=== PATIENT | male | born 1955 | race Caucasian/White ===

== ENCOUNTER 2020-01-10 09:48 | Inpatient (IN) | payer OTHER ==
[~2020-01-10] VITALS: Ht 193 cm; Wt 114.4 kg
--- NOTE | 2020-01-10 10:01 | NUR ---
pt to room from triage in a wheelchair. she is changed into a hospital gown, and connected to our vehicle monitor technician. warm blanket provided for comfort.
[2020-01-10 10:44] LABS: BASOPHILS # (AUTO) 0.02 x10^3/uL (0-0.1); BASOPHILS % (AUTO) 0 % (0-1); EOSINOPHILS # (AUTO) 0.05 x10^3/uL (0-0.4); EOSINOPHILS % (AUTO) 1 % (1-7); LYMPHOCYTES # (AUTO) 0.85 x10^3/uL (1-3.4); LYMPHOCYTES % (AUTO) 16 % (22-44); MD NO; MEAN CORPUSCULAR HEMOGLOBIN 32.5 pg (27.5-34.5); MEAN CORPUSCULAR HGB CONC 32.1 g/dL (33.2-36.2); MEAN CORPUSCULAR VOLUME 101.2 fL (81-97); MEAN PLATELET VOLUME 7.7 fL (7.4-10.4); MONOCYTES # (AUTO) 0.35 x10^3/uL (0.2-0.8); MONOCYTES % (AUTO) 7 % (2-9); NEUTROPHILS # (AUTO) 4.03 x10^3/uL (1.8-6.8); NEUTROPHILS % (AUTO) 76 % (42-75); PLATELET COUNT 169 x10^3/uL (130-400); RED BLOOD COUNT 4.63 x10^6/uL (4.38-5.82); RED CELL DISTRIBUTION WIDTH 15.2 % (9.4-14.8)
[2020-01-10 10:56] LABS: ALBUMIN 3.5 g/dL (3.4-5.0); ANION GAP 8 mmol/L (5-15); CALCIUM 8.9 mg/dL (8.5-10.1); CHLORIDE 112 mmol/L (98-107)
[2020-01-10 11:02] LABS: ALANINE AMINOTRANSFERASE 43 U/L (12-78); ALKALINE PHOSPHATASE 96 U/L (45-117); BILIRUBIN,TOTAL 1.9 mg/dL (0.2-1.0); CREATININE 1.38 mg/dL (0.7-1.3); TOTAL PROTEIN 6.7 g/dL (6.4-8.2); TROPONIN I 0.064 ng/mL (0.000-0.045)
[2020-01-10] MEDS ORDERED: FUROSEMIDE 40 MG/4 ML ONE (12:10)
--- NOTE | 2020-01-10 12:29 | NUR ---
education provided in regard to the plan of care, as well as the basics of congestive heart failure. we discussed diuresis, echocardiograms, and likely medication regimines. he has a urinal at the bedside and is feeling improvement fom oxygenation. i will continue to monitor and treat as ordered, as well as prn while awaiting further plan of care. expecting admission
[2020-01-10] MEDS ORDERED: FUROSEMIDE 40 MG/4 ML IV ONE (12:30)
[2020-01-10] MEDS ORDERED: SODIUM CHLORIDE FLUSH 10ML SYR IVF PRN (13:00)
--- NOTE | 2020-01-10 13:07 | NUR ---
Handoff report received from HUBERT Sifuentes
[2020-01-10 13:17] LABS: MICROSCOPIC NOT IND
--- NOTE | 2020-01-10 13:17 | NUR ---
kianna (rn) is assuming care of this pt at this time. sbar report was exchanged at the bedside.
--- NOTE | 2020-01-10 13:34 | NUR ---
Pt resting, no needs at this time. VS updated.
--- NOTE | 2020-01-10 14:23 | NUR ---
Pt provided with urinal, good UO post Lasix.
[2020-01-10] MEDS ORDERED: HYDROcodone/APAP 5/325 TABLET PO PRN (14:30)
[2020-01-10] MEDS ORDERED: ACETAMINOPHEN 325 MG TABLET PO PRN (14:30)
[2020-01-10] MEDS ORDERED: MELATONIN 5 MG TABLET PO PRN (14:30)
[2020-01-10] MEDS ORDERED: NITROGLYCERIN 0.4 MG BOTTLE (25 TABS) SL PRN (14:30)
[2020-01-10] MEDS ORDERED: LABETALOL 5MG/ML, 20ML IVPush PRN (14:30)
[2020-01-10] MEDS ORDERED: morphine SULFATE 10 MG/ML, 1ML IVPush PRN (14:30)
[2020-01-10] MEDS ORDERED: ONDANSETRON 2MG/ML, 2ML IVPush PRN (14:30)
[2020-01-10] MEDS ORDERED: ONDANSETRON ODT 4 MG PO PRN (14:30)
[2020-01-10] MEDS ORDERED: BISACODYL 10 MG SUPP PR PRN (14:30)
[2020-01-10] MEDS: CEFTRIAXONE PMX 2GM/50ML 50 ML IV SCH (14:50)
[2020-01-10] MEDS ORDERED: CEFTRIAXONE PMX 2GM/50ML 50 ML ONE (14:51)
[2020-01-10] MEDS ORDERED: HEPARIN 5,000 UNITS/ML, 1ML ONE (14:51)
[2020-01-10] MEDS: HEPARIN 5,000 UNITS/ML, 1ML SQ SCH ×2 (14:54→23:00)
--- NOTE | 2020-01-10 15:00 | NUR ---
Blood CX obtained, ABX administered. Pt resting, comfortable, no needs at this time.
[2020-01-10 15:14] LABS: TROPONIN I 0.058 ng/mL (0.000-0.045)
--- NOTE | 2020-01-10 16:35 | NUR ---
Rocephin 2 GM not scanned, administered approx 1450 in ED 26. [employer] plant superintendent aware.
[2020-01-10 17:01] VITALS: BP 129/94
[2020-01-10] MEDS: FUROSEMIDE 40 MG/4 ML IV SCH ×2 (17:01→23:00)
[2020-01-10] MEDS: CARVEDILOL 3.125 MG TABLET PO SCH (17:01)
[2020-01-10] MEDS: POTASSIUM CHLORIDE 20 MEQ TAB.ER.PRT PO SCH (17:01)
[2020-01-10 19:28] VITALS: BP 97/60
[2020-01-10] MEDS: FAMOTIDINE 20 MG TABLET PO SCH (23:00)
[2020-01-11 01:54] VITALS: BP 132/83
[2020-01-11 03:18] LABS: ALANINE AMINOTRANSFERASE 39 U/L (12-78); ANION GAP 9 mmol/L (5-15); CALCIUM 8.1 mg/dL (8.5-10.1); CHLORIDE 107 mmol/L (98-107); CREATININE 1.31 mg/dL (0.7-1.3)
[2020-01-11 03:22] LABS: ALKALINE PHOSPHATASE 83 U/L (45-117); BILIRUBIN,TOTAL 1.7 mg/dL (0.2-1.0); CHOL/HDL RATIO 4.7; CHOLESTEROL, TOTAL 136 mg/dL (140-239); HDL CHOL % 21 % (26-37); HDL CHOLESTEROL (DIRECT) 29 mg/dL (40-60); LDL CHOLESTEROL,CALCULATED 95 mg/dL (54-169); LDL/HDL RATIO 3.3 (0.5-3.0); TOTAL PROTEIN 6.3 g/dL (6.4-8.2); TRIGLYCERIDES 61 mg/dL (50-200); VLDL CHOLESTEROL 12 mg/dL (0-25)
[2020-01-11 03:24] LABS: BASOPHILS # (AUTO) 0.02 x10^3/uL (0-0.1); BASOPHILS % (AUTO) 1 % (0-1); EOSINOPHILS # (AUTO) 0.12 x10^3/uL (0-0.4); EOSINOPHILS % (AUTO) 3 % (1-7); LYMPHOCYTES # (AUTO) 1.09 x10^3/uL (1-3.4); LYMPHOCYTES % (AUTO) 26 % (22-44); MD NO; MEAN CORPUSCULAR HEMOGLOBIN 33.3 pg (27.5-34.5); MEAN CORPUSCULAR HGB CONC 32.9 g/dL (33.2-36.2); MEAN CORPUSCULAR VOLUME 101.2 fL (81-97); MEAN PLATELET VOLUME 8.1 fL (7.4-10.4); MONOCYTES # (AUTO) 0.43 x10^3/uL (0.2-0.8); MONOCYTES % (AUTO) 10 % (2-9); NEUTROPHILS # (AUTO) 2.51 x10^3/uL (1.8-6.8); NEUTROPHILS % (AUTO) 60 % (42-75); PLATELET COUNT 156 x10^3/uL (130-400); RED BLOOD COUNT 4.49 x10^6/uL (4.38-5.82)
[2020-01-11 03:37] LABS: TROPONIN I 0.037 ng/mL (0.000-0.045)
[2020-01-11] MEDS: ASPIRIN 325 MG TABLET EC PO SCH (06:04)
[2020-01-11] MEDS: CARVEDILOL 3.125 MG TABLET PO SCH ×2 (06:04→17:51)
[2020-01-11] MEDS: FUROSEMIDE 40 MG/4 ML IV SCH (06:04)
[2020-01-11] MEDS: HEPARIN 5,000 UNITS/ML, 1ML SQ SCH (06:05)
[2020-01-11 06:06] VITALS: BP 123/89
[2020-01-11 07:44] VITALS: BP 101/68
[2020-01-11] MEDS: SENNA/DOCUSATE TABLET PO SCH (10:08)
[2020-01-11] MEDS: POTASSIUM CHLORIDE 20 MEQ TAB.ER.PRT PO SCH ×2 (10:08→17:51)
[2020-01-11] MEDS: FAMOTIDINE 20 MG TABLET PO SCH (10:08)
[2020-01-11] MEDS: LINEZOLID 600 MG TABLET PO SCH ×2 (11:17→20:10)
[2020-01-11 14:13] VITALS: BP 111/77
[2020-01-11] MEDS: CEFTRIAXONE PMX 2GM/50ML 50 ML IV SCH (14:37)
[2020-01-11] MEDS: ENOXAPARIN 150 MG/ML SQ SCH (14:37)
[2020-01-11 17:52] VITALS: BP 117/78
[2020-01-11 20:24] VITALS: BP 103/66
[2020-01-11] MEDS ORDERED: FUROSEMIDE 40 MG/4 ML IV SCH (21:00)
[2020-01-12] MEDS: ENOXAPARIN 150 MG/ML SQ SCH (00:52)
[2020-01-12 02:03] VITALS: BP 105/75
[2020-01-12 05:05] LABS: BASOPHILS # (AUTO) 0.03 x10^3/uL (0-0.1); BASOPHILS % (AUTO) 1 % (0-1); EOSINOPHILS # (AUTO) 0.16 x10^3/uL (0-0.4); EOSINOPHILS % (AUTO) 4 % (1-7); LYMPHOCYTES # (AUTO) 1.41 x10^3/uL (1-3.4); LYMPHOCYTES % (AUTO) 34 % (22-44); MD NO; MEAN CORPUSCULAR HEMOGLOBIN 32.9 pg (27.5-34.5); MEAN CORPUSCULAR HGB CONC 32.6 g/dL (33.2-36.2); MEAN CORPUSCULAR VOLUME 100.9 fL (81-97); MEAN PLATELET VOLUME 8.2 fL (7.4-10.4); MONOCYTES # (AUTO) 0.41 x10^3/uL (0.2-0.8); MONOCYTES % (AUTO) 10 % (2-9); NEUTROPHILS # (AUTO) 2.15 x10^3/uL (1.8-6.8); NEUTROPHILS % (AUTO) 52 % (42-75); PLATELET COUNT 183 x10^3/uL (130-400); RED BLOOD COUNT 4.74 x10^6/uL (4.38-5.82); RED CELL DISTRIBUTION WIDTH 15.3 % (9.4-14.8)
[2020-01-12 05:12] LABS: ALBUMIN 3.2 g/dL (3.4-5.0); ANION GAP 8 mmol/L (5-15); CALCIUM 8.4 mg/dL (8.5-10.1); CHLORIDE 104 mmol/L (98-107)
[2020-01-12 05:40] LABS: ALANINE AMINOTRANSFERASE 42 U/L (12-78); ALKALINE PHOSPHATASE 89 U/L (45-117); BILIRUBIN,TOTAL 1.5 mg/dL (0.2-1.0); CREATININE 1.58 mg/dL (0.7-1.3)
[2020-01-12 05:58] VITALS: BP 111/74
[2020-01-12] MEDS: ASPIRIN 325 MG TABLET EC PO SCH (06:00)
[2020-01-12] MEDS: CARVEDILOL 3.125 MG TABLET PO SCH (06:01)
[2020-01-12 08:47] VITALS: BP 126/84
[2020-01-12] MEDS ORDERED: CARVEDILOL 6.25 MG TABLET PO ONE (09:30)
[2020-01-12] MEDS: POTASSIUM CHLORIDE 20 MEQ TAB.ER.PRT PO SCH ×2 (09:59→17:18)
[2020-01-12] MEDS: LINEZOLID 600 MG TABLET PO SCH ×2 (09:59→21:38)
[2020-01-12] MEDS: SENNA/DOCUSATE TABLET PO SCH (10:03)
[2020-01-12] MEDS: ENOXAPARIN 120MG/0.8ML SQ SCH (13:00)
[2020-01-12] MEDS: CEFTRIAXONE PMX 2GM/50ML 50 ML IV SCH (14:17)
[2020-01-12] MEDS: CARVEDILOL 12.5 MG TABLET PO SCH (17:22)
[2020-01-12 17:23] VITALS: BP 115/83
[2020-01-12 21:00] VITALS: BP 104/72
[2020-01-12] MEDS: FUROSEMIDE 20 MG/2 ML IV SCH (21:38)
[2020-01-13] MEDS: ENOXAPARIN 120MG/0.8ML SQ SCH ×2 (01:00→13:00)
[2020-01-13 02:59] VITALS: BP 132/86
[2020-01-13] MEDS: ASPIRIN 325 MG TABLET EC PO SCH (05:57)
[2020-01-13] MEDS: CARVEDILOL 12.5 MG TABLET PO SCH ×2 (05:57→17:26)
[2020-01-13 06:22] LABS: ANION GAP 5 mmol/L (5-15); CALCIUM 8.7 mg/dL (8.5-10.1); CHLORIDE 108 mmol/L (98-107)
[2020-01-13 06:24] LABS: CREATININE 1.56 mg/dL (0.7-1.3)
[2020-01-13 07:18] VITALS: BP 117/80
[2020-01-13] MEDS: POTASSIUM CHLORIDE 20 MEQ TAB.ER.PRT PO SCH ×2 (08:30→17:26)
[2020-01-13] MEDS: SENNA/DOCUSATE TABLET PO SCH (08:30)
[2020-01-13] MEDS: LINEZOLID 600 MG TABLET PO SCH ×2 (08:30→20:24)
[2020-01-13] MEDS ORDERED: REGADENOSON 0.4 MG/5 ML SYRINGE ONE (08:59)
[2020-01-13 11:10] VITALS: BP 112/75
[2020-01-13] MEDS: FUROSEMIDE 20 MG/2 ML IV SCH (11:11)
[2020-01-13 14:45] VITALS: BP 97/68
[2020-01-13] MEDS: CEFTRIAXONE PMX 2GM/50ML 50 ML IV SCH (14:47)
[2020-01-13 17:25] VITALS: BP 110/80
[2020-01-13] MEDS ORDERED: FUROSEMIDE 40 MG/4 ML IV ONE (17:30)
[2020-01-13] MEDS ORDERED: RIVAROXABAN 20 MG TABLET PO SCH (18:00)
[2020-01-13] MEDS: CARVEDILOL 25 MG TABLET PO SCH (18:23)
[2020-01-13] MEDS ORDERED: CARVEDILOL 12.5 MG TABLET PO ONE (18:30)
[2020-01-13 19:53] VITALS: BP 108/72
[2020-01-14 02:30] VITALS: BP 102/70
[2020-01-14 05:45] LABS: ANION GAP 5 mmol/L (5-15); CALCIUM 8.6 mg/dL (8.5-10.1); CHLORIDE 106 mmol/L (98-107)
[2020-01-14 05:46] LABS: CREATININE 1.58 mg/dL (0.7-1.3)
[2020-01-14] MEDS: ASPIRIN 325 MG TABLET EC PO SCH (06:06)
[2020-01-14] MEDS: CARVEDILOL 25 MG TABLET PO SCH (06:06)
[2020-01-14 07:57] VITALS: BP 118/74
[2020-01-14] MEDS: POTASSIUM CHLORIDE 20 MEQ TAB.ER.PRT PO SCH (07:58)
[2020-01-14] MEDS: LINEZOLID 600 MG TABLET PO SCH (07:58)
[2020-01-14] MEDS: SENNA/DOCUSATE TABLET PO SCH (07:58)
[2020-01-14] MEDS ORDERED: FUROSEMIDE 40 MG TABLET PO SCH (09:00)
[2020-01-14] MEDS ORDERED: FURO40TA6 PO (11:54)
[2020-01-14] MEDS ORDERED: LINE600T15 PO (11:54)
[2020-01-14] MEDS ORDERED: CARV25TA12 PO (11:54)
[2020-01-14] MEDS ORDERED: RIVA20TA PO (11:54)
[2020-01-14] MEDS ORDERED: ASPI81TA45 PO (11:54)
== END 2020-01-14 12:49 | disposition home or self-care (01) | DRG 682 ==
LOC: ED 10:40 → EDIP 12:46 → 5SO 16:19 → DCLOUNGE 01-14 12:31
PROVIDERS: ADMIT Hospitalist; ATTEND Hospitalist
DX: N17.9 Acute kidney failure, unspecified (principal); I50.41 Acute combined systolic (congestive) and diastolic (congestive) heart failure; L03.115 Cellulitis of right lower limb; I48.92 Unspecified atrial flutter; I24.8 Other forms of acute ischemic heart disease; D68.69 Other thrombophilia; L03.116 Cellulitis of left lower limb; I48.91 Unspecified atrial fibrillation; I25.5 Ischemic cardiomyopathy; D75.89 Other specified diseases of blood and blood-forming organs; Z87.891 Personal history of nicotine dependence
CPT/HCPCS: 36415; 93017; C8929; 71045; 71046; 76700; 78452; 80048; 80053; 80061; 81003; 82607; 83036; 83735; 83880; 84100; 84443; 84484; 85025; 87040; 93005; G0378; J0696; J1644; J1650; J1940; J2785; Q9957; A9502

== ENCOUNTER 2020-02-02 06:30 | Emergency (ER) | payer OTHER ==
[~2020-02-02] VITALS: Ht 193 cm; Wt 112.0 kg
[~2020-02-02 06:30] MED LIST: ASPI81TA45 PO; CARV25TA12 PO; FURO40TA6 PO; LINE600T15 PO; RIVA20TA PO
--- NOTE | 2020-02-02 06:37 | NUR ---
PT WITH EPISTAXIS THAT STARTED JUST BEFORE 0700. ALSO C/O DIZZINESS. PT TAKES BLOOD THINNERS. BLEEDING NOT CONTROLLED. NOST CLAMP IN PLACE, SUCTION PROVIDED TO PT FOR ORAL SUCTIONING.
[2020-02-02] MEDS ORDERED: COCAINE TOPICAL SOLN 4%, 4ML ONE (06:52)
[2020-02-02] MEDS ORDERED: COCAINE TOPICAL SOLN 4%, 4ML TP ONE (07:00)
--- NOTE | 2020-02-02 07:01 | NUR ---
report received from lori tapia.
--- NOTE | 2020-02-02 07:19 | NUR ---
urinal given per request at this time.
[2020-02-02 07:51] VITALS: BP 116/75
--- NOTE | 2020-02-02 07:56 | NUR ---
SOME WATER, TISSUE PROVIDED AT THIS TIME. PT STILL BLEEDING. EDMD AT BEDSIDE.
[2020-02-02] MEDS ORDERED: OXYMETAZOLINE NASAL SPRAY 0.05%,30ML ONE (08:15)
--- NOTE | 2020-02-02 08:28 | NUR ---
NEW WASH CLOTH, TOWEL PROVIDED.
[2020-02-02] MEDS ORDERED: OXYMETAZOLINE NASAL SPRAY 0.05%, 15ML NAS ONE (08:30)
--- NOTE | 2020-02-02 09:45 | NUR ---
pt resting in [facility]. pt's aox4. resps even and unlabored. pt denies any needs/concerns at this time.
== END 2020-02-02 10:42 | disposition home or self-care (01) ==
LOC: ED 07:46
DX: R04.0 Epistaxis (principal); I48.91 Unspecified atrial fibrillation; I11.0 Hypertensive heart disease with heart failure; I50.9 Heart failure, unspecified
CPT/HCPCS: 30901; 99284

== ENCOUNTER → 2020-04-23 | Outpatient (CLI) | payer OTHER | END | disposition home or self-care (01) | LOC: CVU 15:38 | PROVIDERS: ATTEND Internal Medicine Cardiovascular Disease | DX: I34.0 Nonrheumatic mitral (valve) insufficiency (principal); I42.9 Cardiomyopathy, unspecified | CPT/HCPCS: 93306 ==

== ENCOUNTER → 2020-08-26 | Outpatient (CLI) | payer OTHER | END | disposition home or self-care (01) | LOC: CVU 07:17 | PROVIDERS: ATTEND Physician Assistant Medical | DX: I34.0 Nonrheumatic mitral (valve) insufficiency (principal); I11.9 Hypertensive heart disease without heart failure; I44.7 Left bundle-branch block, unspecified; I42.9 Cardiomyopathy, unspecified | CPT/HCPCS: 93306 ==

== ENCOUNTER → 2020-10-08 | Outpatient (CLI) | payer OTHER | END | disposition home or self-care (01) | LOC: CFH 10:41 | PROVIDERS: ATTEND Internal Medicine | DX: J44.9 Chronic obstructive pulmonary disease, unspecified (principal) | CPT/HCPCS: 71250 ==